=== PATIENT | female | born 1990 | race Asian ===

== ENCOUNTER 2023-02-09 06:16 | Day surgery (SDC) | payer OTHER ==
[~2023-02-09] VITALS: Ht 170.2 cm; Wt 61.9 kg
[2023-02-09 07:49] VITALS: O2SAT 100
[2023-02-09] MEDS ORDERED: METHYLERGONOVINE MALEATE 0.2 MG/ML AMP ONE (08:05)
[2023-02-09] MEDS ORDERED: NS IRRIG SOLN 1000 ML IR ONE (08:25)
[2023-02-09] MEDS ORDERED: LR 1,000 ML IV.SOLN IV ONE (08:25)
[2023-02-09] MEDS ORDERED: PROPOFOL 200MG/ 20ML VIAL (DIPRIVAN) IV ONE (08:25)
[2023-02-09] MEDS ORDERED: DEXAMETHASONE SOD PHOSPHATE 4 MG/ML VIAL ONE (08:25)
[2023-02-09] MEDS ORDERED: MIDAZOLAM HCL 5 MG/ML VIAL (VERSED) IV ONE (08:25)
[2023-02-09] MEDS ORDERED: SEVOFLURANE 15 MIN GAS INH ONE (08:25)
[2023-02-09] MEDS ORDERED: fentaNYL CITRATE/PF 100 MCG/2 ML AMP ONE (08:25)
[2023-02-09] MEDS ORDERED: KETOROLAC TROMETHAMINE 30 MG VIAL ONE (08:25)
[2023-02-09] MEDS ORDERED: METOCLOPRAMIDE HCL 10 MG/2 ML VIAL ONE (08:25)
[2023-02-09] MEDS ORDERED: ONDANSETRON HCL 4 MG/2 ML VIAL ONE (08:25)
[2023-02-09] MEDS ORDERED: LIDOCAINE 1% 10 MG/ML, 20 ML MDV ONE (08:25)
[2023-02-09] MEDS ORDERED: MEPERIDINE HCL/PF 25 MG/ML DISP.SYRIN IVP PRN (08:30)
[2023-02-09] MEDS ORDERED: HYDROmorphone 1 MG/ML INJ. CARTRIDGE IVP PRN (08:30)
[2023-02-09] MEDS ORDERED: ONDANSETRON HCL 4 MG/2 ML VIAL IVP PRN (08:30)
[2023-02-09] MEDS ORDERED: MEPERIDINE HCL/PF 25 MG/ML DISP.SYRIN ONE (08:51)
[2023-02-09 11:11] VITALS: BP_SYST 108; PULSE 68; RESP 16
== END 2023-02-09 10:21 | disposition home or self-care (01) ==
LOC: SDS 06:16 → SMU 06:18 → SDS 10:21
PROVIDERS: ATTEND Obstetrics & Gynecology
DX: O02.1 Missed abortion (principal)
CPT/HCPCS: 87081; 59820; 88305; J1100; J1885; J2001; J2210; J2765; J2250; J2405; J2704; J3010; J2175; J7120